=== PATIENT | male | born 1975 | race Caucasian/White ===

== ENCOUNTER 2020-08-23 08:11 | Day surgery (SDC) | payer BC ==
[2020-08-18 09:34] VITALS: BMI 54.2
[2020-08-23] MEDS ORDERED: MIDAZOLAM HCL 2 MG/2 ML SINGLE DOSE VIAL ONE ×2 (08:25)
[2020-08-23 09:16] VITALS: TEMP 97.5
[2020-08-23 09:30] VITALS: BP 135/82; PULSE 84
== END 2020-08-23 09:50 | disposition home or self-care (01) ==
LOC: FASU-ENDO 08:11 → MERGE 08:30 → FASU-ENDO 09:50
PROVIDERS: ATTEND Internal Medicine Gastroenterology
PROC: 0DB78ZX Excision of Stomach, Pylorus, Via Natural or Artificial Opening Endoscopic, Diagnostic (ICD-10-PCS; 2020-08-23)
PROC: 0DB98ZX Excision of Duodenum, Via Natural or Artificial Opening Endoscopic, Diagnostic (ICD-10-PCS; principal; 2020-08-23 08:52)
DX: Z01.818 Encounter for other preprocedural examination (principal); K29.80 Duodenitis without bleeding; K44.9 Diaphragmatic hernia without obstruction or gangrene; K29.50 Unspecified chronic gastritis without bleeding; R12 Heartburn; Z98.84 Bariatric surgery status